=== PATIENT | male | born 1950 | race African-American/Black ===

== ENCOUNTER → 2019-11-09 | Outpatient (CLI) | payer MEDICARE ==
[~2019-11-09] MED LIST: IOPAMIDOL 370 MG/ML 200 ML INFUS..BTL INJ ONE; SODIUM CHLORIDE 0.9% 50ML 50 ML ONE
[2019-11-09 09:44] LABS: BLOOD UREA NITROGEN 19 mg/dL (7-26); BUN/CREATININE RATIO 18 (6-25); CREATININE, SERUM 1.06 mg/dL (0.72-1.25); EST GLOMERULAR FILTRATION RATE > 60 ML/MIN (60-)
--- NOTE | 2019-11-09 10:17 | Diagnostic Imaging Report ---
EXAMINATION: CHEST 2 VIEWS INDICATION: Lymphadenopathy COMPARISON: None FINDINGS: LINES/TUBES:None LUNGS:The lungs are well-inflated. No focal consolidation or pulmonary edema. PLEURA:No pleural effusion or pneumothorax. MEDIASTINUM:The cardiomediastinal silhouette appears normal in size and shape. BONES/SOFT TISSUES:No acute osseous injury. ABDOMEN:No free air under the diaphragm. IMPRESSION: No focal pneumonia or pulmonary edema. No hilar prominence to suggest radiographic evidence of lymphadenopathy. Signed by: Vince Johnson MD on 11/09/2019 10:13 AM
--- NOTE | 2019-11-09 10:53 | Diagnostic Imaging Report ---
EXAM: CT Abdomen and Pelvis WITH intravenous contrast INDICATION: Lymphadenopathy COMPARISON: Chest radiograph of earlier the same day TECHNIQUE: Abdomen and pelvis were scanned utilizing a multidetector helical scanner from the lung base to the pubic symphysis after administration of IV contrast. Coronal and sagittal reformations were obtained. Routine protocol was performed. Scan was performed during portal venous phase. IV CONTRAST: 100mL of Isovue 370 ORAL CONTRAST: Water RADIATION DOSE: Total DLP: 275.9 mGy*cm Dose modulation, iterative reconstruction, and/or weight based adjustment of the mA/kV was utilized to reduce the radiation dose to as low as reasonably achievable. FINDINGS: LOWER THORAX: Normal. HEPATOBILIARY: No focal hepatic lesions. No biliary ductal dilatation. The gallbladder appears unremarkable. SPLEEN: No splenomegaly. PANCREAS: No focal masses or ductal dilatation. 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 No imaging follow-up as this area. No right adrenal nodule. KIDNEYS/URETERS: Multiple bilateral renal cysts measuring up to 3.1 cm on the left and 1.2 cm on the right. The largest cyst on the left (3.1 cm parapelvic cyst series 2 image 23) has an enhancing septation. PELVIC ORGANS/BLADDER: Prostatomegaly to 5.6 cm with indentation of the posterior bladder. PERITONEUM / RETROPERITONEUM: No free air or fluid. LYMPH NODES: Prominent bilateral inguinal lymph nodes do not meet size criteria for lymphadenopathy. VESSELS: Unremarkable. GI TRACT: No distention or wall thickening. BONES AND SOFT TISSUES: No acute osseous injury. No suspicious lytic or blastic lesions. Degenerative changes most notably at L5-S1 where there is disc space narrowing and grade 1 retrolisthesis. IMPRESSION: Multiple bilateral renal cysts as above. The largest cyst on the left measures 3.17 m and contains an enhancing septation (Bosniak 2). Prominent bilateral inguinal lymph nodes not meeting size criteria for lymphadenopathy. Signed by: Vince Johnson MD on 11/09/2019 10:49 AM
== END ==
LOC: CT 08:46
PROVIDERS: ATTEND Internal Medicine Medical Oncology
DX: R59.1 Generalized enlarged lymph nodes (principal)
CPT/HCPCS: 36415; 71046; 74177; 82565; 84520; Q9967